=== PATIENT | male | born 1950 | race Caucasian/White ===

== ENCOUNTER 2025-06-11 11:26 | Outpatient (AMB) | payer OTHER, SELFPAY ==
--- OUTSIDE RECORDS SUMMARY | 2025-06-10 10:00 | XMS_ITS | Encounter Summary ---
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) Procedures Vascular US duplex lower extremity arteries bilateral with AYAKA Hedy Dan MD [address] [place] [address] Phone: tel: fax: [facility] Referral ID Status Reason Start Date Expiration Date V isits Requested Visits Authorized [id number] Authorized 04/08/2025 04/08/2026 1 1 Encounter Details Date Type Department Care Team (Latest Contact Info) Description 06/10/2025 10:00 AM EDT Ancillary Procedure [facility] - [address] [place] [address] Resistant hypertension; 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 No 01/21/2025 Food Access & Nutrition Answer Date Rec orded Do you have access to a vari ety of food including fruits and vegetables? Yes 01/21/2025 Access to Healthcare Answer Date Record ed Within the last 3 months, ho w many times did you visit the emergency department for your medical care? 0 01/21/2025 Health Literacy Answer Date Recorded How often do you need to hav e someone help you when you read instructions, pamphlets, or other written material from your doctor or pharmacy? Never 01/21/2025 Caregiver: How often do you need to have someone help you when you read instructions, pamphlets, or other written material from your doctor or pharmacy? Not on file 01/21/2025 Financial Risk Answer Date Recorded How hard is it for you to pa y for the very basics like food, housing, medical care, and air conditioning / heating? Patient declined 01/21/2025 Transportation Answer Date Recorded Has the lack of transportati on kept you from meetings, work, or from getting things needed for daily living? No Has the lack of transportati on kept you from medical appointments or from getting medications? No 01/21/2025 Social Isolation Answer Date Recorded How often do you feel lonely or isolated from those around you? Patient declined 01/21/2025 Food Risk Answer Date Recorded Within the past 12 months we worried whether our food would run out before we got money to buy more. Never true 01/21/2025 Within the past 12 months th e food we bought just didn't last and we didn't have money to get more. Never true 01/21/2025 Dependent Care Answer Date Recorded Do you need help finding or paying for care for your loved ones. For example, child care center assistant director or elderly care for an older adult? Patient declined 01/21/2025 Education Answer Date Recorded Do you think completing more education or training, like finishing a GED, going to college, or learning a trade, would be helpful for you? No 01/21/2025 Employment and Income Answer Date Recor ded During the last four weeks, have you been actively looking for work? Patient declined 01/21/2025 Living Situation Answer Date Recorded What is your living situation? 0 01/21/2025 Sex and Gender Information Value Date Recorded Sex Assigned at Not on file Legal Sex Male 1:04 AM EST Gender Identity Not on file Sexual Orientation Straight 01/21/2025 1: 24 PM EDT documented as of this encounter Plan of Treatment Upcoming Encounters Date Type Department Care Team (Late st Contact Info) Description 06/17/2025 1:00 PM EDT Office Visit Internal Medicine - [address] [phone] Hedy Dan MD [address] [place] [address] 07/06/2025 9:00 AM EDT Evaluation [facility] [place] [address] [facility] [address] [place] [phone] Stuart Loja, PT [address] [place] [address] 07/13/2025 10:45 AM EDT Office Visit Internal Medicine - [address] [phone] Carolina Zaman NP [address] [place] [address] 08/20/2025 10:00 AM EST Ancillary Procedure [facility] - [facility] [address] [facility] [address] [place] [address] Pending Results Name Type Priority Associated Diagnoses Date /Time Vascular US duplex lower extremity arteries bilateral with AYAKA Vascular Ultrasound Routine Resistant hypertension 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
--- NOTE | 2025-06-11 11:29 | MHC.AMNUTRGE ---
VS Expanded 06/11/25 11:30 Height 6 ft 2 in Weight 260 lb 2.327 oz BMI 33.4 Intake Visit Reasons: Obesity Nutrition Presentation Details: Pt presents for MNT for obesity Pt reports having gained about 34 lbs in [phone] since passed in 2020 Pt reports getting motivated to work on diet modifications. currently sedentary Lives with son who prepares meals or may order out typical meal B: 1/2 muffin blueberry , black coffee (or cheerios/whole milk ) L: bearing grinder (cold cuts or hamburger/chips) water, juice dinner: bearing grinder or fast food or potato/meat/veg, wate ror juice snack: empty danii foods - working n reducing JCU-Xalhjix-Rv.Jeor Equation Height: 6 ft 2 in Weight: 260 lb Resting Metabolic Rate: 1979.07 Calculated Activity Level: Sedentary Calories Needed to Maintain Weight: 2374.88 Diagnosis Nutrition problem #1: overweight/obesity As related to (etiology) #1: excess energy intake As evidenced by (sign/symptom) #1: high BMI (33.4 on 06/25, reports of increased intake with 34 lb wt gain in 3-4 yrs.) Assessment & Plan Assessment & Plan (1) Obesity (BMI 30-39.9): Code(s): E66.9 - Obesity, unspecified Category: Medical Plan: current wt:118 kg ( 06/25 ) est kcal needs as per MSJ: 2400 est protein needs as per 1 g/kg BW: 120 est fluid needs as per 30 ml/kg BW:3500 Recommended sodium : less than 2300 mg/d Recommended fiber > 12 g /day and gradually increase up to 25-28 g /day or as tolerated Nutrition topics discussed : Reviewed (R), Pt verbalized understanding (V) , not applicable (N/A) R, : Healthy Plate Method Concept: R, : Carbohydrates: food sources of carbohydrates, relationship of carbohydrates to blood glucose, fatty liver GI health. Recommended total amount of carbohydrates per meals and snack. Differences between simple carbohydrates and complex carbohydrates R, : Lean protein foods including vegan , vegetarian sources of protein. Benefits of protein (including but not limited to healing, nutritional value , benefits in weight loss, glucose control R, V, N/A: Fats : Source of fats, benefits of fats. Difference between saturated and unsaturated fats. Saturated fats and its contribution to inflammation R, V, N/A: Fiber: food sources and role of fiber in the diet (including but not limited to its role as a prebiotic, benefits in constipation, role in IBS , role in glucose control and cholesterol level) R, V, N/A: Hydration: role of hydration and prevention of dehydration or over hydration. Foods and water content. R, V, N/A: Vitamins and Minerals in foods and supplements R, V, N/A: Interpreting food labels, including serving size, macronutrients, vitamins, minerals, allergens, ingredient list , % daily value Patient Instructions: Work on including fish at least twice a week Reduce on empty calorie foods (cookies/pastires, chips and the like) opt for a yogurt with fruit as bedtime snack Coding Level of Care Code Nutr Indiv Intake (37930) Diagnoses Obesity (BMI 30-39.9) E66.9 Time Spent (min) 30
[2025-06-11 11:30] VITALS: BMI 33.4
--- OUTSIDE RECORDS SUMMARY | 2025-06-11 15:48 | XMS_ITS | Clinical Summary ---
Author Organization [facility] Address [address] [place] [address] Care Team Providers Care Airfield Services Officer Name Role Phone Alida Lima MD Primary Care Provider + Allergies Active Allergy Reactions Criticality Noted Date Comments Naproxen Other (See Comments) Low 12/15/2020 Lisinopril 12/15/2020 Morphine 12/15/2020 Medications Medication Sig Dispensed Refills Start Date End Date Status cetirizine (ZyrTEC) 10 MG tablet Take 10 mg by mouth daily. 0 Active azelastine (ASTELIN) 0.1 % nasal spray spray or apply 1 spray inside Nose 2 (two) times a day. Use in each nostril as directed 0 Active aspirin 81 MG chewable tablet Chew 81 mg by mouth daily. 0 Active amoxicillin-clavulana te (AUGMENTIN) 875-125 MG per tablet Take 1 tablet by mouth 2 (two) times a day. 0 Active amLODIPine (NORVASC) tablet 10 mg Take 10 mg by mouth daily. 0 Active carvedilol (COREG) 6.25 MG tablet Take by mouth 2 (two) times a day with meals. 0 Active tamsulosin (FLOMAX) 0.4 MG CAPS Take 0.4 mg by mouth daily. 0 Active busPIRone (BUSPAR) 5 MG tablet Take 5 mg by mouth 3 (three) times a day. 0 Active Active Problems No known active problems Family History Medical History Relation Name Comments Hypertension Mother Relation Name Status Comments Mother Social History Tobacco Use Types Packs/Day Years Used Date Smoking Tobacco: Former Smokeless Tobacco: Never Alcohol Use Standard Drinks/Week Comments Yes 0 (1 standard drink = 0.6 oz pur e alcohol) weekend Sex and Gender Information Value Date Recorded Sex Assigned at Not on file Gender Identity Not on file Sexual Orientation Not on file Last Filed Vital Signs Vital Sign Reading Time Taken Comments Blood Pressure 154/80 12/15/2020 2:04 PM EDT Pulse 66 12/15/2020 2:04 PM EDT Temperature 36.5 C (97.7 F) 12/15/2020 2:04 PM EDT Respiratory Rate - - Oxygen Saturation - - Inhaled Oxygen Concentration - - Weight 116.1 kg (256 lb) 12/15/2020 2:04 PM EDT Height 188 cm (6' 2 ) 12/15/2020 2:04 PM EDT Body Mass Index 32.87 12/15/2020 2:04 PM EDT Plan of Treatment Health Maintenance Due Date Last Done Comments Hepatitis C Screening 1950 COVID-19 Vaccine (#1) 1950 Depression Screening 1960 Preventative Health Evaluation 01/18/1966 Shingrix-Zoster Vaccine (1 o f 2) 01/18/1998 Fall Risk Assessment 01/18/2013 RSV Adult > 60+ Yrs or (1 - 1-dose 75+ series) 01/18/2023 DTap / Tdap / Td (2 - Td or Tdap) 09/16/2023 09/16/2013 Influenza Vaccine (#1) 2025 07/06/2017 Pneumococcal Vaccine Completed 12/14/2015, 09/16/2013 Hepatitis B Vaccines Aged Out No long er eligible based on patient's age to complete this topic RSV Ped < 20 months Aged Out No longe r eligible based on patient's age to complete this topic Care Teams Airfield Services Officer Relationship Specialty Start Date End Date Alida Lima MD [address] [facility] [address] [facility] [place] [phone] PCP - General Internal Medicine 12/15/20
--- OUTSIDE RECORDS SUMMARY | 2025-06-11 15:48 | XMS_ITS | Encounter Summary ---
Author Organization [facility] Address [address] [place] [address] Care Team Providers Care Preservative Filler Machine Operator Name Role Phone Hedy Dan MD Primary Care Provider [phone] Reason for Visit * Reason Onset Date Comments Medication Problem 06/04/2025 Encounter Details Date Type Department Care Team (Late st Contact Info) Description 06/04/2025 Telephone Walk-In Clinic - [address] [phone] Pradeep Garcia Social History Tobacco Use Types Packs/Day Years [...] care for your loved ones. For example, childcare worker or elderly care for an older adult? [...] PM EDT documented as of this encounter Progress Notes * Patria Castano MA - 06/10/2025 10:52 AM EDT Called patient left message on answering machine to call [facility]. Unable to reach you letter mailed to patient. * Patria Castano MA - 06/07/2025 9:52 AM EDT Called patient left message on answering machine to call [facility]. * Susan Hernandez MA - 06/05/2025 6:51 PM EDT Lmom for pt to cb * Mer Cornejo MA - 06/04/2025 4:36 PM EDT Please resend to [facility] * Pradeep Garcia - 06/04/2025 4:10 PM EDT Patient went to package pick up medication at pharmacy-no orders called into pharmacy per pharmacist who called for urgent care provider. Please have provider call in said orders. Thank you. documented in this encounter Plan of Treatment Upcoming Encounters Date Type Department Care Team (Late st Contact Info) Description 06/17/2025 1:00 PM EDT Office Visit Internal Medicine - [address] [phone] Hedy Dan MD [address] [place], [place] 07/06/2025 9:00 AM EDT Evaluation [facility] [place] [address] [phone] Stuart Loja, PT [address] [place] [address] 07/13/2025 10:45 AM EDT Office Visit Internal Medicine - [address] [phone] Carolina Zaman, LILIANE [address] [place] [address] 08/20/2025 10:00 AM EST Ancillary Procedure [facility] - [address] [place] [address] documented as of this encounter Visit Diagnoses Not on filedocumented in this encounter Additional Health Concerns Assessment Noted Time PHQ-9 Depression Total Score: 0 01/22/20 1:47 PM EDT documented as of this encounter Care Teams Preservative Filler Machine Operator Relationship Specialty Start Date End Date Hedy Dan MD [address] [place] [address] PCP - General Internal Medicine 12/30/24 documented as of this encounter
--- OUTSIDE RECORDS SUMMARY | 2025-06-11 15:49 | XMS_ITS | Clinical Summary ---
Author Organization [address] [place] [address] [place] [phone] Phone Care Team Providers Care Technical Operations Vice President Name Role Phone Hedy Dan MD Primary Care Provider [phone] Allergies Active Allergy Reactions Criticality Noted Date Comments Ibuprofen Other 05/07/2024 Drowsiness, dry mouth Lisinopril Other 12/09/2018 Other Reaction(s): Blood pressure, high Muscle aches, not able to focus Morphine Hallucinations 07/06/2017 hallucinations Naproxen Unknown Low 07/06/2017 Medications azelastine (ASTELIN) 137 mcg (0.1 %) nasal spray Administer 1 spray into affected nostril(s). Active Eliquis 5 mg tablet Take 1 tablet (5 mg total) by mouth 2 (two) times a day. 180 tablet 1 12/18/19 25 Active losartan (COZAAR) 100 mg tablet Take 1 tablet (100 mg total) by mouth 1 (one) time each day. 90 tablet 1 01/29/20 25 Active cetirizine (ZyrTEC) 10 mg tablet Take 1 tablet (10 mg total) by mouth 1 (one) time each day. 90 each 2 01/29/20 25 026 Active ammonium lactate (AmLactin) 12 % lotion Apply topically if needed for dry skin. 400 g 3 01/29/20 25 026 Active acetaminophen (TYLENOL 8 HOUR) 650 mg 8 hr tablet Take 1 tablet (650 mg total) by mouth every 8 (eight) hours if needed for mild pain. 90 tablet 1 03/18/20 25 Active traMADoL (ULTRAM) 50 mg tablet Take 1 tablet (50 mg total) by mouth 3 (three) times a day if needed for moderate pain for up to 2 days. Max Daily Amount: 150 mg 6 tablet 05/13/20 25 Active hydrALAZINE (APRESOLINE) 10 mg tablet Take 1 tablet (10 mg total) by mouth 2 (two) times a day. 180 tablet 05/14/20 25 Active hydroCHLOROthi azide (HYDRODIURIL) 25 mg tablet Take 1 tablet (25 mg total) by mouth 1 (one) time each day. 90 tablet 05/14/20 25 Active carvediloL (COREG) 3.125 mg tablet Take 1 tablet (3.125 mg total) by mouth 2 (two) times a day with meals. 60 each 11 05/20/20 25 026 Active potassium chloride (Klor-Con) 20 mEq packet TAKE 1 PACKET BY MOUTH TWICE DAILY DIRECTED ON PACKET 60 each 06/09/20 25 025 Active aspirin 81 mg chewable tablet Chew 1 tablet (81 mg total) 1 (one) time each day. 90 each 1 01/29/20 25 025 Discontinued(Th erapy completed) hydroCHLOROthi azide (HYDRODIURIL) 25 mg tablet Take 1 tablet (25 mg total) by mouth 1 (one) time each day. 90 each 03/11/20 25 025 Discontinued(Re order) hydrALAZINE (APRESOLINE) 10 mg tablet Take 1 tablet (10 mg total) by mouth 2 (two) times a day. 180 each 03/11/20 25 025 Discontinued(Re order) NIFEdipine CC (ADALAT CC) 60 mg 24 hr tablet Take 1 tablet (60 mg total) by mouth 1 (one) time each day. Do not crush, chew, or split. 30 tablet 03/19/20 25 025 Discontinued(Re order) testosterone 12.5 mg/ 1.25 gram (1 %) gel in metered-dose pump PLACE 1 PUMP ON EACH SHOULDER 025 Discontinued(Th erapy completed) potassium chloride (KLOR-CON) 20 mEq packet Take 20 mEq by mouth 2 (two) times a day. 60 packet 05/11/20 25 025 Discontinued magnesium oxide (MAG-OX) 400 mg magnesium tablet Take 1 tablet (400 mg total) by mouth 2 (two) times a day for 10 days. 20 tablet 05/11/20 25 025 NIFEdipine CC (ADALAT CC) 60 mg 24 hr tablet Take 1 tablet (60 mg total) by mouth 1 (one) time each day. Do not crush, chew, or split. 90 tablet 05/14/20 25 025 Discontinued(Th erapy completed) Active Problems Problem Noted Date Diagnosed Date Acquired hammer toe of right foot 04/08/2025 Other hammer toe(s) (acquired), left foot 2024 Class 1 obesity 01/28/2025 Impaired fasting glucose 01/28/2025 Overactive bladder 01/28/2025 Seasonal allergies 04/05/2021 HF (heart failure), systolic (CMS/HCC V24, CMS/H CC V28) 01/06/2021 Cardiomyopathy (CMS/HCC V24, CMS/HCC V28) 2020 Overview (01/28/2025): EF reduced to 35-40% on echo 11/2020 Atrial fibrillation, chronic (CMS/HCC V24, CMS/H CC V28) 11/04/2020 Overview (01/28/2025): Diagnosed 2020 Cardioversion 01/2021 Multinodular goiter 04/11/2019 Overview (01/28/2025): Found incidentally on imaging Endo eval, FNA 05/2019, uptake scan Repeat FNA reassuring 08/2019, repeat imaging in one year BPH (benign prostatic hyperplasia) 08/27/2018 ED (erectile dysfunction) 08/27/2018 Hyperlipemia 11/11/2017 Ascending aorta dilatation (CMS/HCC V24) 018 Overview (01/28/2025): By echo 10/30/17: at the sinus of valsalva 4.4cm and ascending portion reaching about 4 cm Hypertension 09/03/2007 Resolved Problems Problem Noted Date Diagnosed Date Resolved Date Neck pain 01/28/2025 01/28/2025 Hemorrhage of urinary bladder wall 12/25/2023 01/28/2025 Overview (01/28/2025): Last Assessment & Plan: Patient is s/p transurethral water jet Ablation of prostate on 12/25/[address] Deion Holly, postprocedure he developed hematuria started on CBI. Last Eliquis dose on 12/21/2023 evening. -Continue CBI -Monitor H&H goal hemoglobin above 8 with underlying cardiac history -Follow-up urology recommendations Carpal tunnel syndrome of right wrist 02/08/2022 01/28/2025 History of COVID-19 10/20/2021 01/29/20 25 Elevated PSA 12/20/2017 01/28/2025 Overview (01/28/2025): Following with [facility], Dr. Bills Abnormal EKG 09/07/2017 01/28/2025 Overview (01/28/2025): Done 08/23/[address] [facility] Normal sinus rhythm Incomplete right bundle branch block Left anterior fasicular block Confirmed by MD Alfred ECHO ordered Acquired deviated nasal septum 09/10/2014 01/28/2025 Epistaxis 09/10/2014 01/28/2025 Low HDL (under 40) 09/03/2009 Urinary frequency 09/03/2000 01/28/2025 Encounters Date Type Department Care Team Description 06/10/2025 10:00 AM EDT Ancillary Procedure [facility] - [address] [place] [phone] Resistant hypertension; Claudication of both lower extremities (CMS/HCC V24) 06/04/2025 2:15 PM EDT Office Visit [facility] [address] [place], [place] [phone] Gage Petty, LILIANE Bilateral radiating leg pain (Primary Dx) 06/04/2025 Telephone [facility] [address] [place], [place] [phone] JoseApolinarip 06/02/2025 Telephone Internal Medicine - [address] [phone] Hedy Dan MD 05/20/2025 9:40 AM EDT Office Visit [facility] - [facility] [address] [facility] [address] [place] [phone] Darlin Miller PA Atrial fibrillation, chronic (CMS/HCC V24, CMS/HCC V28) (Primary Dx); ZHAO (dyspnea on exertion); Lower leg edema; Coronary artery disease due to lipid rich plaque 05/11/2025 9:00 AM EDT Lab Draw Station - [address] Hx of hypokalemia; Hypomagnesemia; Hypokalemia 04/29/2025 Telephone Internal Medicine - [address] [phone] Charo Morales RN 04/28/2025 1:30 PM EDT Office Visit Internal Medicine - [address] [phone] Hedy Dan MD Hospital discharge follow-up (Primary Dx); Hx of hypokalemia; Hypomagnesemia; Primary hypertension 04/26/2025 6:34 PM EDT - 04/26/2025 10:30 PM EDT Emergency [facility] [address] [place] [phone] Antonio Stephens MD Sciatic leg pain (Primary Dx) Discharge Disposition: Home or Self Care 04/21/2025 8:35 AM EDT Lab Draw Station - [address] Erythrocytosis; Resistant hypertension 04/21/2025 Telephone Internal Medicine - [address] [phone] Charo Morales RN 04/08/2025 9:30 AM EDT Office Visit Internal Medicine [address] [phone] Hedy Dan MD Resistant hypertension (Primary Dx); Claudication of both lower extremities ([facility] V24); Fleshy skin mole; Class 1 obesity; Mixed hyperlipidemia; Screening for deficiency anemia; Erythrocytosis; Atrial fibrillation, chronic (CMS/HCC V24, CMS/HCC V28); Chronic systolic heart failure (CMS/HCC V24, CMS/HCC V28); Multinodular goiter; Ascending aorta dilatation ([facility]/HCC V24); Erectile dysfunction, unspecified erectile dysfunction type; Current use of ferry terminal supervisor anticoagulation; Insomnia, unspecified type 04/08/2025 Telephone Internal Medicine [address] [place] [phone] Hedy Dan MD 04/06/2025 Telephone Internal [address] [phone] Hedy Dan MD 03/11/2025 8:45 AM EDT Office Visit Internal [address] [phone] Carolina Zaman NP Resistant hypertension (Primary Dx); Localized edema from Last 3 Months Immunizations Name Administration Dates Next Due Influenza Quadravalent, 0.5m l (Fluad) 65yo and older 07/16/2020 Influenza Quadravalent, 0.5m l (Fluzone High-dose) 65yo and older 06/28/2023,07/15/2022,06/22/2021 Influenza trivalent, 0.5mL ( Fluzone High-dose) 65yo and older 06/10/2024,06/07/2019,07/06/2018,07/06 Influenza trivalent, 0.5mL, preservative free (Fluarix; FluLaval; Fluzone) ages 6mo and older (Afluria) 3 years and older 07/06/2016 Influenza trivalent, with pr eservative (Fluzone; Afluria) 6mo and older 07/20/2016,08/01/2015,07/07/2014,07/01,07/04/2012 Influenza, Unspecified 07/01/2023,06/15/2021 Pfizer SARS-CoV-2 COVID-19, mRNA, LNP-S, preservative free 06/30/2021,11/26/2020,11/05/2020 Pneumococcal conjugate 13 va lent (Prevnar 13, PCV13) 2mo and older 12/14/2015 Pneumococcal polysaccharide 23 valent (Pneumovax 23) 2yo and older 09/16/2013 Tdap Tetanus diptheria acell ular pertussis (Boostrix; Adacel) 7yo and older 04/02/2024,09/16/2013 Zoster Live 04/29/2014 Zoster recombinant (Shingrix ) 19yo and older 06/15/2019,04/12/2019 Surgical History Surgery Date Site/Laterality Comments NOSE SURGERY PROCEDURE: AK UNLISTED PROCEDURE NOSE; COMMENT: fracture at 10 y/o TOTAL KNEE ARTHROPLASTY 2003 Bilateral PROCEDURE: HISTORICAL TOTAL KNEE REPLACE; COMMENT: Dr Falguni Farr WISDOM TOOTH EXTRACTION PROCEDURE: HISTORICAL WISDOM TEETH EXTRACTION MULTIPLE TOOTH EXTRACTIONS PROCEDURE: HISTORICAL DENTAL EXTRACTION COLONOSCOPY 11/14/2016 PROCEDURE: HISTORICAL COLONOSCOPY; COMMENT: ?polyp OTHER SURGICAL HISTORY 02/15/2021 Right PROCEDURE: AK PRTL THYROID LOBECTOMY UNI W/WO ISTHMUSECTOMY; COMMENT: right hemithyroidectomy (multinodular hyperplasia) - Maria A Sargent OTHER SURGICAL HISTORY 01/2021 PROCEDURE: DESTRUCTION OF EXTERNAL HEMORRHOIDS OTHER SURGICAL HISTORY 05/11/2021 PROCEDURE: AK CARDIOVERSION ELECTIVE ARRHYTHMIA EXTERNAL; COMMENT: By Dr. Willis at [facility] Medical History Medical History Date Comments HTN (hypertension) DX:HTN (hyper tension) Neck pain DX:Neck pain Overactive bladder DX:Overactive bladder Abnormal EKG 09/07/2017 DX:Abnormal EKG; COMMENT: Done 08/23/[address] [facility] Normal sinus rhythm Incomplete right bundle branch block Left anterior fasicular block Confirmed by MD Alfred ECHO ordered BPH (benign prostatic hyperplasia) 08/27/2018 DX:BPH (benign prostatic hyperplasia) Dilated aortic root (CMS/HCC V24) 11/07/2017 DX:Dilated aortic root (HCC); COMMENT: By echo 10/30/17: at the sinus of valsalva 4.4cm and ascending portion reaching about 4 cm ED (erectile dysfunction) 08/27/2018 DX:ED (erectile dysfunction) Elevated PSA 12/20/2017 DX:Elevated PSA; COMMENT: Following with PVDr. Negar Rogers Hyperlipemia 11/11/2017 DX:Hyperlipemia Left carpal tunnel syndrome DX:L eft carpal tunnel syndrome; COMMENT: By EMG testing Family History Medical History Relation Name Comments Other: Esophageal cancer Brother Other: Hepatitis C Father Coronary artery disease Mother Hypertension Mother Other: Lupus Sister Mental illness Son x3 1 1 son deceas ed from [facility] overdose, 2 sons with Mental health d/o Heart attack Neg Hx Stroke Neg Hx Relation Name Status Comments Brother Father Mother Sister Son x3 1 Alive Social History Tobacco Use Types Packs/Day Years [...] for your loved ones. For example, child monitor or elderly care for an older adult? [...] Orientation Straight 01/21/2025 1: 24 PM EDT Obstetrics History Last Filed Vital Signs Vital Sign Reading Time Taken Comments Blood Pressure 182/98 06/04/2025 2:09 PM EDT Pulse 63 06/04/2025 2:09 PM EDT Temperature 36.2 C (97.2 F) 06/04/2025 2:09 PM EDT Respiratory Rate 16 04/26/2025 5:35 PM EDT Oxygen Saturation 98% 06/04/2025 2:09 PM EDT Inhaled Oxygen Concentration - - Weight 122 kg (268 lb) 05/20/2025 9:41 AM EDT Height 188 cm (6' 2 ) 05/20/2025 9:41 AM EDT Body Mass Index 34.41 05/20/2025 9:41 AM EDT Plan of Treatment Upcoming Encounters Date Type Department Care Team (Late st Contact Info) Description 06/17/2025 1:00 PM EDT Office Visit [facility] [address] [place], [place] [phone] Hedy Dan MD [address] [place], [place] 07/06/2025 9:00 AM EDT Evaluation [facility] [place] [address] [facility] [address] [place] [phone] Stuart Loja, PT [address] [place] [address] 07/13/2025 10:45 AM EDT Office Visit Internal Medicine - [address] [phone] Carolina Zaman, LILIANE [address] [place] [address] 08/20/2025 10:00 AM EST Ancillary Procedure [facility] - [facility] [address] [facility] [address] [place] [phone] Health Maintenance Due Date Last Done Comments RSV Immunization Adult Patients (1 - 1-dose 75+ series) 01/18/2023 COVID-19 Vaccine ( - 2024- season) 2025 06/30/2021, 11/26/2020, 11/05/2020 Influenza Vaccine (#1) 2025 , 07/01/2023, 06/28/2023, Additional history exists Social Influencers of Health Screening 01/21/2026 01/21/2025 Falls Risk Assessment 01/28/2026 01/28/2025 Hypertension/CHF/CAD Annual BMP Blood Test 05/21/2026 05/21/2025, 05/11/2025, 04/26/2025, Additional history exists Cholesterol Screening (Lipid Panel) 05/21/2030 05/21/2025, 02/09/2025, 10/22/2020 DTaP,Tdap,and Td Vaccines (3 - Td or Tdap) 04/02/2034 04/02/2024, 09/16/2013 Pneumococcal Vaccine: 50+ Years Completed 12/14/2015, 09/16/2013 Hepatitis C Screening Completed 07/06/2017 Zoster Vaccines Completed 06/15/2019, 03/31, 04/29/2014 Depression Screening Completed 01/21/2025 HIB Vaccines Aged Out No longer eligi ble based on patient's age to complete this topic HPV Vaccines Aged Out No longer eligi ble based on patient's age to complete this topic Hepatitis A Vaccines Aged Out No long er eligible based on patient's age to complete this topic Hepatitis B Vaccines Aged Out No long er eligible based on patient's age to complete this topic IPV Vaccines Aged Out No longer eligi ble based on patient's age to complete this topic MMR Vaccines Aged Out No longer eligi ble based on patient's age to complete this topic Meningococcal ACWY Vaccine Aged Out N o longer eligible based on patient's age to complete this topic Meningococcal B Vaccine Aged Out No l onger eligible based on patient's age to complete this topic RSV Immunization Patients Under 20 months Aged Out No longer eligible based on patient's age to complete this topic Varicella Vaccines Aged Out No longer eligible based on patient's age to complete this topic Procedures Procedure Name Priority Date/Time Associated Diagnosis Comments BASIC METABOLIC PANEL Routine 05/21/2025 10:21 AM EDT Hx of hypokalemia Hypomagnesemia Primary hypertension MAGNESIUM Routine 05/21/2025 10:21 AM EDT Hx of hypokalemia Hypomagnesemia Primary hypertension LIPID PANEL WITH REFLEX TO DIRECT LDL Routine 05/21/2025 10:21 AM EDT Atrial fibrillation, chronic (CMS/HCC V24, CMS/HCC V28) ZHAO (dyspnea on exertion) Lower leg edema Coronary artery disease due to lipid rich plaque ECG 12-LEAD Routine 05/20/2025 10:22 AM EDT Atrial fibrillation, chronic (CMS/HCC V24, CMS/HCC V28) BASIC METABOLIC PANEL Routine 05/11/2025 9:12 AM EDT Hx of hypokalemia Hypomagnesemia MAGNESIUM Routine 05/11/2025 9:12 AM EDT Hx of hypokalemia Hypomagnesemia CBC WITH AUTO DIFFERENTIAL STAT 04/26/2025 7:50 PM EDT SEDIMENTATION RATE STAT 04/26/2025 7: 50 PM EDT CREATINE KINASE STAT 04/26/2025 7:50 PM EDT CBC AND DIFFERENTIAL STAT 04/26/2025 7:50 PM EDT MAGNESIUM STAT 04/26/2025 7:50 PM EDT COMPREHENSIVE METABOLIC PANEL STAT 04/26/2025 7:50 PM EDT BASIC METABOLIC PANEL Routine 04/21/2025 8:38 AM EDT Resistant hypertension MAGNESIUM Routine 04/21/2025 8:38 AM EDT Resistant hypertension COMPLETE BLOOD COUNT Routine 04/21/2025 8:38 AM EDT Erythrocytosis BASIC METABOLIC PANEL Routine 03/11/2025 10:25 AM EDT Resistant hypertension HEPATITIS C SCREENING Routine 07/06/2017 from Last 3 Months or Most Recently Relevant to Health Maintenance Results * (ABNORMAL) Lipid panel with reflex to direct LDL (05/21/2025 10:21 AM EDT) [facility] Cholesterol 142 0 - 200 mg/dL LAB CHEMISTRY METHOD 05/21/2025 1:55 PM EDT [facility] Triglycerides 224(H) 0 - 150 mg/dL LAB CHEMISTRY METHOD 05/21/2025 1:55 PM EDT [facility] HDL 41 >=40 mg/dL LAB CHEMISTRY METHOD 05/21/2025 1:55 PM EDT [facility] LDL Calculated 56 0 - 100 mg/dL LAB CHEMISTRY METHOD 05/21/2025 1:55 PM EDT [facility] Comment:Estimated LDL Calcul ated using equation: Total cholesterol - HDL cholesterol - (Triglycerides/5) VLDL Cholesterol Tigre 44.8 mg/dL LAB CHEMISTRY METHOD 05/21/2025 1:55 PM EDT [facility] Non HDL Chol. (LDL+VLDL) 101 <145 mg/dL LAB CHEMISTRY METHOD 05/21/2025 1:55 PM EDT [facility] Chol/HDL Ratio 3.5 0.0 - 4.4 LAB CHEMISTRY METHOD 05/21/2025 1:55 PM EDT [facility] Blood Venous blood specimen / Unknown Venipuncture / Unknown 05/21/2025 10:21 AM EDT 05/21/2025 10:21 AM EDT Darlin MEJIA LAB BLOOD ORDERABLES Final Resul t Performing Organization Address City/[facility]/ZIP Co de Phone Number [facility] [address] [place] [address], [place] [phone] * Magnesium (05/21/2025 10:21 AM EDT) Only the most recent of4 resultswithin the time period is included. Magnesium 2.1 1.9 - 2.6 mg/dL LAB CHEMISTRY METHOD 05/21/2025 1:52 PM EDT [facility] Blood Venous blood specimen / Unknown Venipuncture / Unknown 05/21/2025 10:21 AM EDT 05/21/2025 10:21 AM EDT Hedy Dan MD LAB BLOOD ORDERABLES Final Res ult [facility] [address] [place] [address], [place] [phone] * (ABNORMAL) Basic metabolic panel (05/21/2025 10:21 AM EDT) Only the most recent of4 resultswithin the time period is included. Sodium 142 133 - 145 mmol/L LAB CHEMISTRY METHOD 05/21/2025 1:52 PM [facility] Potassium 3.9 3.5 - 5.5 mmol/L LAB CHEMISTRY METHOD 05/21/2025 1:52 PM [facility] Chloride 110 96 - 110 mmol/L LAB CHEMISTRY METHOD 05/21/2025 1:52 PM [facility] CO2 27 21 - 32 mmol/L LAB CHEMISTRY METHOD 05/21/2025 1:52 PM [facility] Anion Gap 5 3 - 11 LAB CHEMISTRY METHOD 05/21/2025 1:52 PM [facility] Glucose 87 70 - 100 mg/dL LAB CHEMISTRY METHOD 05/21/2025 1:52 PM [facility] BUN 17 5 - 25 mg/dL LAB CHEMISTRY METHOD 05/21/2025 1:52 PM [facility] Creatinine 1.39(H) 0.70 - 1.30 mg/dL LAB CHEMISTRY METHOD 05/21/2025 1:52 PM [facility] eGFR 52(L) >=60 mL/min/1. 73m2 LAB CHEMISTRY METHOD 05/21/2025 1:52 PM [facility] Comment:Calculation based on the Chronic Kidney Disease Epidemiology Collaboration (CKD-EPI) equation refit without adjustment for race. BUN/Creatinine Ratio 12.2 LAB CHEMISTRY METHOD 05/21/2025 1:52 PM [facility] Calcium 8.6 8.5 - 10.5 mg/dL LAB CHEMISTRY METHOD 05/21/2025 1:52 PM [facility] Blood Venous blood specimen / Unknown Venipuncture / Unknown 05/21/2025 10:21 AM EDT 05/21/2025 10:21 AM EDT us Hedy Dan MD LAB BLOOD ORDERABLES Final Res ult [facility] [address] [place] [address], [place] [phone] * ECG 12 lead (05/20/2025 10:22 AM EDT) Ventricular Rate ECG 80 BPM GEMUSE Atrial Rate 51 BPM GEMUSE QRS Duration 116 ms GEMUSE Q-T Interval 398 ms GEMUSE QTc 459 ms GEMUSE R Whiting -39 degrees GEMUSE T Whiting 7 degrees GEMUSE ECG Interpretation Atrial fibrillation with premature ventricular or aberrantly conducted complexes Left axis deviation Nonspecific ST abnormality When compared with ECG of 07-DEC-2023 12:26, No significant change was found Confirmed by YONATHAN WILLIS ([id number]) on 05/20/2025 6:02:46 PM GEMUSE 05/20/2025 9:50 AM EDT 05/20/2025 6:02 PM EDT Darlin MEJIA ECG ORDERABLES Edited Result - Final GEMUSE * (ABNORMAL) CBC auto differential (04/26/2025 7:50 PM EDT) WBC 6.7 4.8 - 10.8 K/mcL LAB HEMETOLOGY METHOD 04/26/2025 8:48 PM EDT [facility] RBC 5.10 4.50 - 5.50 M/mcL LAB HEMETOLOGY METHOD 04/26/2025 8:48 PM EDT [facility] Hemoglobin 15.6 13.5 - 17.5 g/dL LAB HEMETOLOGY METHOD 04/26/2025 8:48 PM EDT [facility] Hematocrit 49.3 42.0 - 54.0 % LAB HEMETOLOGY METHOD 04/26/2025 8:48 PM EDT [facility] MCV 96.3 79.0 - 98.0 FL LAB HEMETOLOGY METHOD 04/26/2025 8:48 PM EDT [facility] MCH 30.5 27.0 - 32.0 pcg LAB HEMETOLOGY METHOD 04/26/2025 8:48 PM EDT [facility] MCHC 31.6(L) 32.0 - 37.0 g/dL LAB HEMETOLOGY METHOD 04/26/2025 8:48 PM EDT [facility] RDW 15.3(H) 11.0 - 15.0 % LAB HEMETOLOGY METHOD 04/26/2025 8:48 PM EDT [facility] Platelets 163 130 - 400 K/mcL LAB HEMETOLOGY [facility] 04/26[facility]2025 [facility] MPV 12.2(H) 7.0 - 11.0 FL LAB HEMETOLOGY METHOD 04/26/2025 8:48 PM EDT [facility] NRBC 0.0 <1.0 % LAB HEMETOLOGY METHOD 04/26/2025 8:48 PM EDT [facility] NRBC Absolute 0.00 <0.10 K/mcL LAB HEMETOLOGY METHOD 04/26/2025 8:48 PM [facility] Neutrophils Relative 64.7 % LAB HEMETOLOGY METHOD 04/26/2025 8:[facility] Lymphocytes Relative 22.9 % LAB HEMETOLOGY METHOD 04/26/2025 8:48 PM EDT [facility] Monocytes Relative 9.1 % LAB HEMETOLOGY METHOD 04/26/2025 8:48 PM EDT [facility] Eosinophils Relative 2.1 % LAB HEMETOLOGY METHOD 04/26/2025 8:48 [facility] Basophils Relative 0.6 % LAB HEMETOLOGY METHOD 04/26/2025 8:48 PM EDT [facility] Immature Granulocytes Relative 0.6 % LAB HEMETOLOGY METHOD 04/26/2025 8:48 PM EDT [facility] Neutrophils Absolute 4.36 1.50 - 7.00 K/mcL LAB HEMETOLOGY METHOD 04/26/2025 8:48 PM EDT [facility] Lymphocytes Absolute 1.54 1.00 - 5.00 K/mcL LAB HEMETOLOGY METHOD 04/26/2025 8:48 PM EDT [facility] Monocytes Absolute 0.61 0.20 - 1.00 K/[facility] LAB HEMETOLOGY METHOD 04/26/2025 8:48 PM EDT [facility] Eosinophils Absolute 0.14 0.00 - 0.50 K/mcL LAB HEMETOLOGY METHOD 04/26/2025 8:48 PM EDT [facility] Basophils Absolute 0.04 0.00 - 0.20 K/mcL LAB HEMETOLOGY METHOD 04/26/2025 8:48 PM EDT [facility] Immature Granulocytes Absolute 0.04(H) 0.00 - 0.03 K/mcL LAB HEMETOLOGY METHOD 04/26/2025 8:48 PM EDT [facility] Blood Venous blood specimen / Unknown Venipuncture / Unknown 04/26/2025 7:50 PM EDT 04/26/2025 8:37 PM EDT us Antonio Stephens MD LAB BLOOD ORDERABLES Anabel l Result [facility] [address] [place] [address], * Sedimentation rate (04/26/2025 7:50 PM EDT) Sed Rate 7 0 - 20 mm/hr LAB HEMETOLOGY METHOD 04/26/2025 9:20 PM EDT [facility] Blood Venous blood specimen / Unknown Venipuncture / Unknown 04/26/2025 7:50 PM EDT 04/26/2025 8:37 PM EDT Antonio Stephens MD LAB BLOOD ORDERABLES Anabel l Result Performing Organization Address [facility]/ZIP Co de Phone Number [facility] [address] [place] [address], [place] [phone] * Cardiac Enzymes - CPK (04/26/2025 7:50 PM EDT) Total CK 94 22 - 269 unit/L LAB CHEMISTRY METHOD 04/26/2025 9:20 PM EDT [facility] Blood Venous blood specimen / Unknown Venipuncture / Unknown 04/26/2025 7:50 PM EDT 04/26/2025 8:37 PM EDT Antonio Stephens MD LAB BLOOD ORDERABLES Anabel l Result Performing Organization Address [facility]/ZIP Co de Phone Number [facility] [address] [place] [address], [place] [phone] * Comprehensive Metabolic Panel (CMP) (04/26/2025 7:50 PM EDT) Sodium 138 133 - 145 mmol/L LAB CHEMISTRY METHOD 04/26/2025 9:30 PM EDT [facility] Potassium 4.5 3.5 - 5.5 mmol/L LAB CHEMISTRY METHOD 04/26/2025 9:30 PM EDT [facility] Chloride 106 96 - 110 mmol/L LAB CHEMISTRY METHOD 04/26/2025 9:30 PM EDT [facility] CO2 29 21 - 32 mmol/L LAB CHEMISTRY METHOD 04/26/2025 9:30 PM EDT [facility] Anion Gap 3 3 - 11 LAB CHEMISTRY METHOD 04/26/2025 9:30 PM [facility] Glucose 98 70 - 100 mg/dL LAB CHEMISTRY METHOD 04/26/2025 9:30 PM [facility] BUN 19 5 - 25 mg/dL LAB CHEMISTRY METHOD 04/26/2025 9:30 PM [facility] Creatinine 1.09 0.70 - 1.30 mg/dL LAB CHEMISTRY METHOD 04/26/2025 9:30 PM [facility] eGFR 70 >=60 mL/min/1. 73m2 LAB CHEMISTRY METHOD 04/26/2025 9:30 PM [facility] Comment:Calculation based on the Chronic Kidney Disease Epidemiology Collaboration (CKD-EPI) equation refit without adjustment for race. BUN/Creatinine Ratio 17.4 LAB CHEMISTRY METHOD 04/26/2025 9:30 PM [facility] Calcium 9.5 8.5 - 10.5 mg/dL LAB CHEMISTRY METHOD 04/26/2025 9:30 PM [facility] AST (SGOT) 25 10 - 42 unit/L LAB CHEMISTRY METHOD 04/26/2025 9:30 PM [facility] ALT (SGPT) 39 10 - 60 unit/L LAB CHEMISTRY METHOD 04/26/2025 9:30 PM [facility] Alkaline Phosphatase 81 42 - 121 unit/L LAB CHEMISTRY METHOD 04/26/2025 9:30 PM [facility] Total Protein 7.3 6.0 - 8.0 g/dL LAB CHEMISTRY METHOD 04/26/2025 9:30 PM [facility] Albumin 4.1 3.2 - 5.0 g/dL LAB CHEMISTRY METHOD 04/26/2025 9:30 PM [facility] Total Bilirubin 0.5 0.0 - 1.4 mg/dL LAB CHEMISTRY METHOD 04/26/2025 9:30 PM [facility] Blood Venous blood specimen / Unknown Venipuncture / Unknown 04/26/2025 7:50 PM EDT 04/26/2025 8:37 PM EDT us Antonio Stephens MD LAB BLOOD ORDERABLES Anabel lali Result [facility] [address] [place] [address], * (ABNORMAL) Complete blood count (04/21/2025 8:38 AM EDT) [facility] WBC 7.2 4.8 - 10.8 K/mcL LAB HEMETOLOGY METHOD 04/21/2025 11:34 AM EDT [facility] RBC 4.90 4.50 - 5.50 M/mcL LAB HEMETOLOGY [facility] Hemoglobin 15.2 13.5 - 17.5 g/dL LAB HEMETOLOGY METHOD 04/21[facility]2025 11[facility] Hematocrit 46.4 42.0 - 54.0 % LAB HEMETOLOGY METHOD 04/21/2025 11:34 AM [facility] MCV 93.9 79.0 - 98.0 FL LAB HEMETOLOGY METHOD [facility]/21[facility]2025 11[facility] MCH 30.8 27.0 - 32.0 pcg LAB HEMETOLOGY METHOD 04/21[facility]2025 11[facility] MCHC 32.8 32.0 - 37.0 g/dL LAB HEMETOLOGY METHOD 04/21/2025 11:34 AM [facility] RDW 15.4(H) 11.0 - 15.0 % LAB HEMETOLOGY METHOD 04/21/2025 11:34 AM [facility] Platelets 142 130 - 400 K/mcL LAB HEMETOLOGY METHOD 04/21/2025 11:34 AM EDT [facility] MPV 12.4(H) 7.0 - 11.0 FL LAB HEMETOLOGY METHOD 04/21/2025 11:34 AM EDT [facility] NRBC 0.0 <1.0 % LAB HEMETOLOGY METHOD 04/21/2025 11:34 AM EDT [facility] NRBC Absolute 0.00 <0.10 K/mcL LAB HEMETOLOGY METHOD 04/21/2025 11:34 AM EDT [facility] Blood Venous blood specimen / Unknown Venipuncture / Unknown 04/21/2025 8:38 AM EDT 04/21/2025 8:38 AM EDT Hedy Dan MD LAB BLOOD ORDERABLES Final Res ult [facility] [address] [place] [address], * Hepatitis C Screening (07/06/2017) Hepatitis C Screening negative Historical Provider HEALTH MAINTENANCE Final Result from Last 3 Months or Most Recently Relevant to Health Maintenance Insurance [facility] Care Teams Technical Operations Vice President Relationship Specialty Start Date End Date Hedy Dan MD [address] [place] [address] PCP - General Internal Medicine 12/30/24
--- OUTSIDE RECORDS SUMMARY | 2025-06-11 15:49 | XMS_ITS | Patient Health Record ---
[facility] Address [address] [place] [address] Care Team Providers Care Orthopedic Mechanic Name Role Phone Talisha Camarena MD Primary Care Provider Unav ailable Black, Maria L Unavailable [phone] Allergies Allergen (clinical drug ingredient) Drug/Non Drug Allergy documented on EMR Reaction Allergy Type Onset Date Status morphine Morphine Unknown Drug Allergy Active advil Unknown Drug Allergy Active Reason For Referral No Information Medications Medication SIG (Take, Route, Frequency, Duration) Notes Start Date End Date Status VESIcare 10 MG TAKE 1 TABLET BY RAHEEL TH AT BEDTIME Oral; Duration: 14 Activ e PEG 3350-KCl-Na Bicarb-NaCl 420 GM DRINK 240 ML BY MOUTH EVERY 15 MIN Oral; Duration: 1 Active Cialis 5 MG TAKE 1 TABLET BY RAHEEL TH DAILY Oral; Duration: 30 Active cloNIDine HCl 0.1 MG TAKE 1 TABLET BY MO UTH 2 TIMES A DAY Oral; Duration: 90 Active Social History Tobacco use other than smoking: Question Answer Notes Are you an other tobacco user? No Problems Problem Type SNOMED Code ICD Code Onset Dates Problem Status W/U Status Risk Notes Problem Acquired hammer toe of right foot (7033761063120 105) Other hammer toe(s) (acquired), right foot (M20.41) Active confirmed Problem Acquired hammer toe of left foot (7685443231893 103) Other hammer toe(s) (acquired), left foot (M20.42) Active confirmed Plan Of Treatment No Information Insurance Providers Payer Name Payer Address Payer Phone Subscriber Number Group Number Insured Name Patient Relationship to Insured Coverage Start Date Coverage End Date [facility] [address] [place] [address] [phone] [id number] Sudhir Reis Self - patient is the insured Medical (General) History Medical History History ICD Code Arthritis Broken bones Measles High blood pressure Scarlet fever Mumps Chicken pox Joint implants/screws Transfusions Surgical History Surgery Date(Month/Year) left knee replacement 10/2005 right knee replacement 12/2005
[2025-06-15 21:58] VITALS: BMI 33.4
== END 2025-06-11 12:01 | disposition home or self-care (01) ==
PROVIDERS: PCP Internal Medicine; Visit Provider Dietitian, Registered
DX: E66.9 Obesity, unspecified (principal)

== ENCOUNTER → 2025-06-11 11:26 | Outpatient (BNVA) | payer OTHER, SELFPAY | PROVIDERS: PCP Internal Medicine; Visit Provider Dietitian, Registered | DX: E66.9 Obesity, unspecified (principal) | CPT/HCPCS: 97802 ==